=== PATIENT | female | born 1985 | race Caucasian/White ===

== ENCOUNTER 2023-09-08 09:46 | Inpatient (IN) | payer OTHER ==
[2023-09-08 10:18] VITALS: RESP 18; TEMP 98.2; BMI 31.2
[2023-09-08 11:26] LABS: EPI CELLS 13 /uL (0-25.1); HYALINE CASTS 0 /uL (0-3.1); URINE APPEARANCE CLOUDY; URINE BACTERIA >9,000 /uL (0-1359); URINE BILIRUBIN NEGATIVE (NEGATIVE); URINE COLOR YELLOW; URINE GLUCOSE (UA) NEGATIVE (NEGATIVE); URINE KETONE NEGATIVE (NEGATIVE); URINE LEUK ESTERASE 3+ (NEGATIVE); URINE NITRITE POSITIVE (NEGATIVE); URINE PROTEIN 3+ (NEGATIVE); URINE RBC 119 /uL (0-23.9); URINE UROBILINOGEN 0.2 mg/dL (0.2-1.0); URINE WBC 3175 /uL (0-25.8)
[2023-09-08] MEDS ORDERED: KETOROLAC TROMETHAMINE 15 MG/ML VIAL ONE (11:28)
[2023-09-08] MEDS ORDERED: morphine SULFATE 4 MG/ML VIAL ONE (11:28)
[2023-09-08] MEDS: morphine CARPU-JECT 4 MG/1 ML DISP.SYRIN IVPUSH ONE (11:50)
[2023-09-08] MEDS: KETOROLAC TROMETHAMINE 15 MG/ML VIAL IVPUSH ONE ×2 (11:51→17:16)
[2023-09-08] MEDS: SODIUM CHLORIDE 1,000 ML IV STA ×2 (11:51→14:15)
[2023-09-08 11:57] LABS: BASO % 0.2 % (0-2.0); EOS % 0.6 % (0-4.5); HEMATOCRIT 36.6 % (32.4-45.2); HEMOGLOBIN 11.9 GM/dL (10.7-15.3); LYMPH % 20.5 % (8-40); MCH 28.4 pg (25.7-33.7); MCHC 32.5 g/dl (32.0-36.0); MEAN CELL VOLUME 87.3 fl (80-96); MEAN PLT VOLUME 9.4 fl (7.5-11.1); MONO % 7.8 % (3.8-10.2); NEUT % 70.9 % (42.8-82.8); PLATELET COUNT 193 10^3/uL (134-434); RBC 4.19 M/mm3 (3.60-5.2); RDW 14.4 % (11.6-15.6); WHITE BLOOD COUNT 8.3 K/mm3 (4.0-10.0)
[2023-09-08 12:15] LABS: POTASSIUM 3.7 mmol/L (3.5-5.1)
[2023-09-08 12:16] LABS: CALCIUM 8.9 mg/dL (8.5-10.1)
[2023-09-08 12:17] LABS: ALBUMIN 3.6 g/dl (3.4-5.0); BLOOD UREA NITROGEN 11.7 mg/dL (7-18)
[2023-09-08 12:20] LABS: CREATININE 0.7 mg/dL (0.55-1.3)
[2023-09-08 12:22] LABS: BILIRUBIN,TOTAL 0.7 mg/dL (0.2-1); TOT PROT 7.3 g/dl (6.4-8.2)
[2023-09-08] MEDS ORDERED: CEFTRIAXONE 2 GM/100 ML BAG IVPB ONE (12:38)
[2023-09-08] MEDS: CEFTRIAXONE 2,000 MG in DEXTROSE 5%-WATER - 50 ML IVPB ONE (12:45)
[2023-09-08] MEDS ORDERED: CEFTRIAXONE 1 GM in DEXTROSE 5%-WATER - 100 ML IVPB ONE (14:38)
[2023-09-08 17:22] VITALS: BP 144/94; PULSE 81
== END 2023-09-08 17:23 | disposition home or self-care (01) | DRG 463 ==
LOC: JER 09:46 → JERBED 16:19
PROVIDERS: ADMIT Internal Medicine; ATTEND Internal Medicine
DX: N10 Acute pyelonephritis (principal); N13.30 Unspecified hydronephrosis; F17.200 Nicotine dependence, unspecified, uncomplicated; M54.9 Dorsalgia, unspecified; R10.31 Right lower quadrant pain
CPT/HCPCS: 36415; 74176-TC; 80053; 81003; 84703; 85025; 87086; 87186; 99285-25